=== PATIENT | female | born 1935 | race Caucasian/White ===

== ENCOUNTER 2016-06-20 15:44 | Observation (INO) | payer OTHER ==
[~2016-06-20] VITALS: Ht 172.7 cm; Wt 82.7 kg
[~2016-06-20 15:44] MED LIST: AMIODARONE HCL200 M1 PO; AMIODARONE HCL400 M1 PO; AMLODIPINE BESY10 M1 PO; AMOX-CLAV 875-1 EACH PO; ASPIRIN EC81 M1 PO; ASPIRIN81 M4 PO; CARDIZEM CD240 M1 PO; CARDIZEM CD300 M1 PO; CORDARONE200 MG PO; COZAAR25 M1 PO; DIOVAN160 MG PO; ELIQUIS5 M1 PO; FLOVENT HFA12 G1 INH; FUROSEMIDE20 M1 PO; GLIPIZIDE ER2.5 M1 PO; GLIPIZIDE XL5 M1 PO; HYDRALAZINE HCL25 M1 PO; HYDRALAZINE HCL50 M1 PO; JANUVIA100 M1 PO; LASIX20 M1 PO; LASIX40 M1 PO; LEVEMIR100 UNIT/1 SC; LISINOPRIL40 M1 PO; LOSARTAN POTASS25 M1 PO; MAGNESIUM OXID400 M1 PO; METFORMIN HCL500 M3 PO; METFORMIN HCL850 M1 PO; METOPROLOL SUCC50 M2 PO; NOVOLOG100 UNIT/2 SC; OMEPRAZOLE20 M2 PO; PAROXETINE HCL20 M1 PO; SIMVASTATIN80 M1 PO; SPIRIVA18 MCG INH; TOPROL XL50 M1 PO; TYLENOL325 M1 PO
--- NOTE | 2016-06-20 15:55 | NUR ---
TRIAGE: PT TO ER WITH DAUGHTER, SENT FROM [facility]F CLINIC FOR DIURESING R/T WEIGHT INCREASE OF 15 LBS FROM BASELINE. DENIES ANY PAIN OR DIFFICULTY BREATHING. USES O2 3L VIA NASAL CANULA AT BASELINE WITH SATS 91%, PT STATES "DR HERNANDEZ IS HAPPY IF I'M 88-92%".
--- NOTE | 2016-06-20 15:55 | NUR ---
Informed waiting has been performed.
--- NOTE | 2016-06-20 16:43 | ED GENERAL ADULT ---
History of Present Illness General Chief Complaint: General Adult Stated Complaint: +20LBS IN 2WEEKS, ON 80MG LASIX Source: patient, old records Exam Limitations: no limitations Allergies Coded Allergies: meperidine (From DEMEROL) (GI UPSET 06/20/16) oxycodone (From PERCOCET) (GI UPSET 06/20/16) Reconcile Medications Amiodarone HCl 200 MG TABLET 1 TAB PO DAILY AFIB Apixaban (Eliquis) 5 MG TABLET 1 TAB PO BID BLOOD THINNER (Reported) Aspirin (Ecotrin*) 81 MG TABLET.DR 1 TAB PO DAILY HEART HEALTH (Reported) Diltiazem HCl (Cardizem Cd) 300 MG CAP.ER.24H 1 TAB PO DAILY ATRIAL FIBRILLATION Fluticasone Propionate (Flovent Hfa) 12 GM AER.W.ADAP 2 PUF INH BID SHORTNESS OF BREATH Furosemide (Lasix) 40 MG TABLET 1 TAB PO BID CHF Hydralazine HCl 25 MG TABLET 1 MG PO TID BLOOD PRESSURE Insulin Detemir (Levemir) 100 UNIT/ML VIAL 9 UNITS SC BID diabetes . Losartan Potassium (Cozaar) 25 MG TABLET 1 TAB PO DAILY bp Magnesium Oxide 400 MG TABLET 400 MG PO TID HYPOMAGNESEMIA Metformin HCl 850 MG TABLET 1 TAB PO BID DM (Reported) Metoprolol Succinate 50 MG TAB.ER.24H 1 TAB PO BID HEART/BP (Reported) Paroxetine HCl 20 MG TABLET 1 TAB PO DAILY DEPRESSION (Reported) Simvastatin (Simvastatin*) 80 MG TABLET 0.5 TAB PO DAILY CHOLESTEROL ( Reported) Sitagliptin Phosphate (Januvia) 100 MG TABLET 1 TAB PO DAILY DIABETES ( Reported) Tiotropium Junior (Spiriva) 18 MCG CAP.W.DEV 1 PUF INH DAILY SHORTNESS OF BREATH Trazodone HCl (Unknown Strength) TABLET (Unknown Dose) UNKNOWN (Reported) Triage Note: TRIAGE: PT TO ER WITH DAUGHTER, SENT FROM [facility]F CLINIC FOR DIURESING R/T WEIGHT INCREASE OF 15 LBS FROM BASELINE. DENIES ANY PAIN OR DIFFICULTY BREATHING. USES O2 3L VIA NASAL CANULA AT BASELINE WITH SATS 91%, PT STATES "DR HERNANDEZ IS HAPPY IF I'M 88-92%". Triage Nurses Notes Reviewed? yes HPI: Patient presents for evaluation of a 15-20 pound weight gain over the past 2 weeks despite increased doses of Lasix. Patient denies any associated shortness of breath or chest pain. She is beginning to have difficulty ambulating due to the increasing weight and peripheral edema. Patient is becoming increasingly concerned that she will start building of fluid in her lungs. Weight gain has been constant and described as severe and unresponsive to her Lasix. Nothing seems to make the swelling improve. (JUDY CRUZ,EDIS Peck) Vital Signs & Intake/Output Vital Signs & Intake/Output Vital Signs Date Time Temp Pulse Resp B/P Pulse O2 O2 Flow FiO2 Ox Delivery Rate 06/21 1123 97.2 63 18 154/71 93 Nasal 3.0L Cannula 06/21 0809 97.0 60 20 176/77 94 Nasal 3.0L Cannula 06/21 0342 96.9 58 16 159/68 93 Nasal 3.0L Cannula 06/21 0106 97.0 62 18 165/74 94 Nasal 3.0L Cannula 06/20 2059 96.8 58 18 188/80 93 Nasal 3.0L Cannula 06/20 1857 98.1 50 18 167/71 95 Nasal 3.0L Cannula 06/20 1708 99 Room Air 06/20 1551 97.4 50 22 131/61 91 Nasal 3.0L Cannula ED Intake and Output 06/21 0000 06/20 1200 Intake Total 0 Output Total 400 Balance -400 Intake, Oral 0 Output, Urine 400 Patient 190 lb Weight Onset: Gradual Duration: week(s): Timing: recent history Injury Environment: home Associated Symptoms: increasingly swollen legs. (SHELBIE CRUZ,ARETHA Fuentes) Past History Travel History Traveled to [place] past 21 day No Medical History Any Pertinent Medical History? 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 Yes (SHELBIE CRUZ,ARETHA Fuentes) Review of Systems Review of Systems Constitutional: Reports: no symptoms. EENTM: Reports: no symptoms. Respiratory: Reports: no symptoms. Cardiovascular: Reports: no symptoms. GI: Reports: no symptoms. Genitourinary: Reports: no symptoms. Musculoskeletal: Reports: no symptoms. Skin: Reports: see HPI. Neurological/Psychological: Reports: no symptoms. Hematologic/Endocrine: Reports: no symptoms. Immunologic/Allergic: Reports: no symptoms. All Other Systems: Reviewed and Negative (JUDY CRUZ,EDIS Peck) Physical Exam Physical Exam General Appearance: SEE BELOW Comments: Gen.: Well-nourished, well-developed, no acute respiratory distress (nasal cannula in place). Head: Normocephalic, atraumatic. Eyes: Normal inspection bilaterally Ears: Normal inspection bilaterally Nose: Normal inspection Throat/mouth : Moist mucosa Neck: Supple, full range of motion, no goiter Heart: Regular rate and rhythm, no murmurs rubs or gallops Lungs: Clear to auscultation bilaterally with normal air entry Chest: Nontender Back: Normal range of motion Abdomen: Soft, nontender, nondistended, normal bowel sounds Extremities: Normal range of motion grossly, equal radial pulses, no cyanosis, 2 + bilateral lower extremity pitting edema without signs of cellulitis or significant chronic skin changes. Neurologic: Cranial nerves grossly intact, speech is clear Skin: warm and dry Psychiatric: Calm, cooperative, no apparent delusions or hallucinations (JUDY CRUZ,EDIS Peck) Physical Exam Head: atraumatic, normal appearance Eyes: Bilateral: normal appearance. Ears, Nose, Throat: normal pharynx, normal ENT inspection Neck: normal inspection, supple, full range of motion Respiratory: normal breath sounds, chest non-tender, no respiratory distress, quiet respiration, lungs clear Cardiovascular: regular rate/rhythm Gastrointestinal: normal bowel sounds, soft, non-tender Back: normal inspection, normal range of motion, vertebral tenderness Extremities: normal inspection, normal capillary refill, normal range of motion, no edema Reflexes: 1+: bicep (R), bicep (L). Skin: intact, normal color, warm/dry Core Measures ACS in differential dx? No CVA/TIA Diagnosis: No Severe Sepsis Present: No Septic Shock Present: No (SHELBIE CRUZ,ARETHA Fuentes) Progress Differential Diagnoses I considered the following diagnoses in my evaluation of the patient: CHF, peripheral edema, anasarca renal failure Comments: 06/20/2016 8:07:26 PM patient will be observed in the emergency department overnight and provided IV diuretics. Patient will be reevaluated in the morning for final disposition. Patient signed out to Dr. Macias. 06/21/2016 12:55:19 PM patient signed out to me by Dr. 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 The patient has had a reasonable diuresis overnight and has lost about 4 pounds of weight. (JUDY CRUZ,EDIS Peck) Differential Diagnoses I considered the following diagnoses in my evaluation of the patient: pt with volume overload, differential dx as above. Plan of Care: Orders Procedure Date/time Status Heart Healthy Diet 06/[address] in observation 06/21 1300 Active PT Evaluate & Treat 06/21 1126 Active Weight 06/21 1107 Active CASE MANAGEMENT CONSULT 06/21 0804 Active BASIC METABOLIC PANEL 06/21 0700 Complete EKG 06/[address] in observation 06/20 2019 Active Patient Data 06/[address] in observation 06/20 2005 Active Patient Data 06/20 2005 Active Intake & Output 06/20 1706 Active Saline Lock 06/20 1642 Active CBC WITHOUT DIFFERENTIAL 06/20 1642 Complete B-TYPE NATRIURETIC PEP (BNP) 06/20 1642 Complete BASIC METABOLIC PANEL 06/20 1642 Complete Laboratory Tests 06/21/16 0643: Anion Gap 13, Estimated GFR 48 L, BUN/Creatinine Ratio 38.2 H, Glucose 270 H, Calcium 8.4 06/20/16 1730: Anion Gap 17 H, Estimated GFR 40 L, BUN/Creatinine Ratio 36.2 H, Glucose 242 H, Calcium 8.7, Ozd-Z-Jkudocuvtes Pept 9740 H, CBC w Diff NO MAN DIFF REQ, RBC 4.24, MCV 73.0 L, MCH 22.3 L, RDW 18.8 H, MPV 8.6, Gran % 78.7 H, Lymphocytes % 11.3 L, Monocytes % 7.3, Eosinophils % 2.4, Basophils % 0.3, Absolute Granulocytes 3.4, Absolute Lymphocytes 0.5 L, Absolute Monocytes 0.3, Absolute Eosinophils 0.1, Absolute Basophils 0, PUBS MCHC 30.6 L Diagnostic Imaging: Viewed by Me: Radiology Read. Discussed w/RAD: Radiology Read. CXR Impression: no acute abnormality, no infiltrates, normal size heart, normal mediastinum Initial ED EKG: normal axis, normal intervals, normal p-waves, normal QRS complex, normal sinus rhythm, no acute changes Hand-Off Endorsed To: EDIS KIM MD Endorsed Time: 0700 Pending: consult (follow up case management), Xray (ARETHA MACIAS MD) Departure Departure Condition: Stable Referrals: PANCHITO JUDD MD (PCP/Family) Departure Forms: Customer Survey General Discharge Information Observation Note Spoke With: YUMIKO CRUZ,IRVIN Physician Advisor Notified: TARAN CRUZ,IKE Gomez Place Patient In: Non-ED OBS Care Area Rationale for Observation: My rational for observation is as follows patient is suffering volume overload secondary to congestive heart failure. At this point the patient's volume overload has manifested itself with peripheral edema that has worsened over the past few days along with a sizable weight gain. Patient is at risk of congestive heart failure, dyspnea and ultimately respiratory failure if her volume status is not managed properly. She has failed outpatient management with P0 Lasix and intermittent IV Lasix. She continues to gain weight. I feel she now requires a more aggressive management with repeated doses of IV furosemide and close monitoring of the patient's intake and output to sure negative fluid balance along with monitoring the patient's renal functions and potassium levels. (EDIS KIM MD) Departure Disposition: STILL A PATIENT Clinical Impression Primary Impression: Volume overload (ARETHA MACIAS MD) Critical Care Note Critical Care Note Critical Care Time: non-applicable (ARETHA MACIAS MD) ED Attending Observation Initial Observation Note: Patient's disposition (admission or discharge) is uncertain at this time, she needs a period of observation for the following reason(s): Patient is exhibiting clinical volume overload that has not responded to outpatient management with oral Lasix. She now requires IV Lasix and monitoring of intake and output and weight. Renal functions and potassium levels will also need to be monitored. If the patient improves clinically she can be considered for discharge. The ED Nurse caring for this patient has been personally informed as to what the patient is being observed for. (EDIS KIM MD) Initial Observation Note: I have seen and personally examined EDDY ALMAZAN on 06/20/16 at 2301. I agree with the current emergency department documentation. The disposition (admission or discharge) is uncertain at this time, she needs a period of observation for the following reason(s): The ED Nurse caring for this patient has been personally informed as to what the patient is being observed for. Observation Re-Evaluation: I have reevaluated EDDY ALMAZAN on 06/20/16 at 2302. The physical findings that support the continued need to observe this patient include pt receiving iv lasix... to be placed in AM. (SHELBIE CRUZ,ARETHA Fuentes)
--- NOTE | 2016-06-20 17:00 | NUR ---
IV ESTABLISHED, PT RESTING COMFORTABLY, 4+ PITTING EDEMA NOTED TO BILATERAL LOWER EXTREMITIES NOTED, PT REPORTING ABD EDEMA WELL, NO ABD PAIN ON PALPATION. PT REPORTING HOME 02 AT BASELINE, DENIES ANY INCREASED NEEDS OF 02 RECENTLY, STATES SHE ROUTINELY SLEEPS SITTING UP ON THE COUCH. CAME TO ED TODAY FOR A 15 LB WEIGHT GAIN OVER THE PAST TWO WEEKS DESPITE 80 MG OF LASIX DAILY
--- NOTE | 2016-06-20 17:33 | NUR ---
BLOOD DRAWN AND SENT TO [facility]
--- NOTE | 2016-06-20 17:38 | NUR ---
ORDER FOOD TRAY PT REQUESTED TUNA SANDWICH AND GINGERAL PER DR JUDY NELSON TO EAT
[2016-06-20 17:47] LABS: ABSOLUTE BASOPHIL COUNT 0 /CUMM (0.0-0.2); ABSOLUTE EOSINOPHIL COUNT 0.1 /CUMM (0.0-0.7); ABSOLUTE GRANULOCYTE CT 3.4 /CUMM (1.4-6.5); ABSOLUTE LYMPH COUNT 0.5 /CUMM (1.2-3.4); ABSOLUTE MONOCYTE COUNT 0.3 /CUMM (0.10-0.60); BASOPHIL % 0.3 % (0.0-2.0); EOSINOPHIL % 2.4 % (0-5); GRANULOCYTE % 78.7 % (42.2-75.2); HEMATOCRIT 30.9 % (37-47); MEAN CORPUSCULAR HGB 22.3 PG (27.0-31.0); MEAN CORPUSCULAR HGB CONC 30.6 G/DL (33.0-37.0); MEAN PLATELET VOLUME 8.6 FL (7.4-10.4); PLATELET COUNT 229 /CUMM (130-400); RBC DISTRIBUTION WIDTH 18.8 % (11.5-14.5); RED BLOOD CELL CT 4.24 /CUMM (4.20-5.40); WHITE BLOOD CELL COUNT 4.3 /CUMM (4.8-10.8)
--- NOTE | 2016-06-20 18:30 | NUR ---
PT RECIEVED FOOD TRAY
--- NOTE | 2016-06-20 18:56 | NUR ---
PT RESTING QUIETLY, VSS, NAD, INFORMED OF POC, DENIES ANY ADDTL NEEDS AT THIS TIME. DENIES ANY SOB, MORALES, CP.
--- NOTE | 2016-06-20 19:08 | NUR ---
IN TO [facility] PT
--- NOTE | 2016-06-20 20:27 | NUR ---
PT MEDICATED WITH 80MG LASIX PER ORDER (SEE MAR). COMMODE AT BEDSIDE. WILL CTM OUTPUT AND EFFECT.
--- NOTE | 2016-06-20 20:28 | NUR ---
PT FAMILY AT BEDSIDE REQUESTING TO SPEAK WITH CASE MANAGEMENT. CASE MANAGEMENT AT BEDSIDE NOW TO TALK TO FAMILY.
[2016-06-20] MEDS ORDERED: METFORMIN HCL850 M1 PO (20:45)
[2016-06-20] MEDS ORDERED: METOPROLOL SUCC50 M2 PO (20:46)
--- NOTE | 2016-06-20 20:46 | NUR ---
Case Mgmnt TSF: I went in and introduced myself to patient's daughter ( I had already introduced myself to patient earlier). I gave them our brochure and card. Patient's daughter stated they had gotten a bill earlier in a particular status and were worried about that. I told them to contact us if that happened again. I gave them a list of facilities for possible STR if patient was medically cleared and we were able to receive prior auth. I answered all of their questions at this time and they are happy with the poc at present. I let the patient know I would speak with her in the morning when I came in and we would further clarify the plan at that time. Patient and daughter are in agreement at present. CM continuing to follow.
[2016-06-20] MEDS ORDERED: TRAZODONE HCL50 M1 (20:47)
--- NOTE | 2016-06-20 20:57 | NUR ---
PT MOVED FROM ER STRETCHER TO HOSPITAL BED FOR COMFORT, 250 CC CLEAR YELLOW URINE OUTPUT. PT DENIES ANY ADDTL NEEDS OR CONCERNS.
--- NOTE | 2016-06-20 21:46 | NUR ---
150 CCS CLEAR YELLOW URINE OUTPUT. PT DENIES ANY OTHER REQUESTS. PT PROVIDED THIS RN WITH LIVING WILL. COPY MADE. ORIGINAL RETURNED TO PT AND COPY PLACED IN PT CHART.
--- NOTE | 2016-06-20 22:54 | NUR ---
PT URINATED 250 CCS CLEAR YELLOW URINE. DENIES ANY SOB. NSR ON MONITOR. 93% ON BASELINE 3L. DENIES ANY OTHER REQUESTS. WILL CTM.
--- NOTE | 2016-06-21 01:05 | NUR ---
PT VOIDED 200CCS CLEAR YELLOW URINE. DENIES ANY COMPLAINTS. NSR ON MONITOR. NAD NOTED. WILL CTM.
--- NOTE | 2016-06-21 03:41 | NUR ---
PT MEDICATED WITH SECOND ROUND IV LASIX 80MG PER ORDER (SEE MAR). WILL CONTINUE TO MONITOR OUTPUT. IMPROVEMENT IN LEG EDEMA NOTED 2+. NSR ON MONITOR. DENIES ANY PAIN OR SOB. NAD NOTED.
--- NOTE | 2016-06-21 05:59 | NUR ---
PT PROVIDED WITH DECAF COFFEE PER REQUEST AND MD APPROVAL.
--- NOTE | 2016-06-21 07:45 | RADIOLOGY REPORT ---
EXAMINATION: XR PORTABLE CHEST CLINICAL INFORMATION: Volume overload. CHF COMPARISON: June 17, 2016 and May 23, 2016 TECHNIQUE: Portable view of the chest was obtained. FINDINGS: There are again noted to be bibasilar regions of density consistent with atelectasis and pleural effusions similar to prior study. There is some central peribronchial cuffing present which may be on basis of early interstitial edema. No airspace edema is identified. The heart is upper limits of normal in size. No pneumothorax. IMPRESSION: Bibasilar density similar to prior examination most likely related to atelectasis and pleural fluid. Findings of mild interstitial edema.
--- NOTE | 2016-06-21 08:00 | NUR ---
ASSUMED CARE OF THIS PATIENT, REPORT RECEIVED FROM RN KIT IBARRA. PER DR KIM PATIENT IS TO REMAIN IN ER CASE MANAGEMENT HOLD FOR POSSIBLE PLACEMENT IN REHAB FACILITY. PT ASSISTED TO BSC FOR VOIDING. REQUESTED BREAKFAST TRAY, HEART HEALTHY TRAY ORDERED.
--- NOTE | 2016-06-21 08:47 | NUR ---
HEART HEALTHY BREAKFAST TRAY DELIVERED TO PATIENT AT THIS TIME
--- NOTE | 2016-06-21 10:32 | NUR ---
PT OOB TO BSC DAUGHTER AT BEDSIDE
--- NOTE | 2016-06-21 11:08 | NUR ---
PT WEIGHED, 185.5 LBS PT AMBULATED FROM RM 12 TO POD 1 DOC BOX AND BACK WITHOUT DIFFICULTY. DR KIM AT BEDSIDE DISCUSSING POC WITH FAMILY.
--- NOTE | 2016-06-21 11:15 | NUR ---
REPORT TO JUN SPENCE
--- NOTE | 2016-06-21 11:24 | NUR ---
RECIEVED REPORT/ASSUMED CARE OF PT. AWAITING DISPO FROM MD AND CASE MGMT. PT ALERT WITH NO COMPLAINTS, LUNCH TRAY PROVIDED.
--- NOTE | 2016-06-21 11:40 | NUR ---
Case Mgmnt TSF: I met with patient and family. Son was in room but daughter had to leave for a while. Patient did ambulate with nursing. She told me she felt winded afterwards. Patient has 3 steps into her house but the rest of the area is flat. Daughter has concerns about mother going home. PT has been paged to see how patient tolerates stairs. We will continue to work towards plan of care for patient. CM continuing to follow.
--- NOTE | 2016-06-21 11:48 | NUR ---
SEEN BY CASE MGMT. PENDING PT EVAL TO SEE IF PT CAN MANAGE THE 3 STAIRS IN/OUT OF HER HOME.
--- NOTE | 2016-06-21 12:52 | NUR ---
PT COMFORTABLE, GETTING UP TO COMMODE AND BACK INDEPENDENTLY. CASE MANAGEMENT AT BEDSIDE TO DISCUSS DISPO.
--- NOTE | 2016-06-21 13:31 | NUR ---
PT TO BE ADMITTED INPT OBS, AWAITING BED ASSIGNMENT, PLAN EXPLAINED TO PT BY CASE MGMT.
--- NOTE | 2016-06-21 14:01 | History & Physical ---
MARGUERITE SANTILLAN 06/21/16 1401: General Information and HPI MD Statement: I have seen and personally examined EDDY ALMAZAN and documented this H&P. The patient is a 80 year old F who presented with a patient stated chief complaint of []. Source of Information: patient Exam Limitations: no limitations History of Present Illness: This is a 80-year-old lady with past medical history significant for for HFpEF, Afib on Eliquis, CAD s/p stent placement, hypertension, hyperlipidemia, COPD on 2 L home oxygen, depression, multiple recent admissions for CHF exacerbation, presents to the hospital for worsening of lower extremity edema 2 weeks. The patient had approximately 15-20 pound weight gain over the past 2 weeks which was not responsive to increased dose of Lasix. She also experienced difficulty ambulating because of her increased weight and peripheral edema. She received 2 doses of IV Lasix while in the ED(06/20/2016, 06/21/2016). The patient reports dyspnea and orthopnea. She denies headache, nausea, vomiting , chest pain, palpitation, abdominal pain, urinary symptoms. She follows with Dr. Longoria (ship rigger) Dr. Jo (PCP). Allergies/Medications Allergies: Coded Allergies: meperidine (From DEMEROL) (GI UPSET 06/20/16) oxycodone (From PERCOCET) (GI UPSET 06/20/16) Home Med list Amiodarone HCl 200 MG TABLET 1 TAB PO DAILY AFIB Apixaban (Eliquis) 5 MG TABLET 1 TAB PO BID BLOOD THINNER (Reported) Aspirin (Ecotrin*) 81 MG TABLET.DR 1 TAB PO DAILY HEART HEALTH (Reported) Diltiazem HCl (Cardizem Cd) 300 MG CAP.ER.24H 1 TAB PO DAILY ATRIAL FIBRILLATION Fluticasone Propionate (Flovent Hfa) 12 GM AER.W.ADAP 2 PUF INH BID SHORTNESS OF BREATH Furosemide (Lasix) 40 MG TABLET 1 TAB PO BID CHF Hydralazine HCl 25 MG TABLET 1 MG PO TID BLOOD PRESSURE Insulin Detemir (Levemir) 100 UNIT/ML VIAL 9 UNITS SC BID diabetes . Losartan Potassium (Cozaar) 25 MG TABLET 1 TAB PO DAILY bp Magnesium Oxide 400 MG TABLET 400 MG PO TID HYPOMAGNESEMIA Metformin HCl 850 MG TABLET 1 TAB PO BID DM (Reported) Metoprolol Succinate 50 MG TAB.ER.24H 1 TAB PO BID HEART/BP (Reported) Paroxetine HCl 20 MG TABLET 1 TAB PO DAILY DEPRESSION (Reported) Simvastatin (Simvastatin*) 80 MG TABLET 0.5 TAB PO DAILY CHOLESTEROL ( Reported) Sitagliptin Phosphate (Januvia) 100 MG TABLET 1 TAB PO DAILY DIABETES ( Reported) Tiotropium [place] (Spiriva) 18 MCG CAP.W.DEV 1 PUF INH DAILY SHORTNESS OF BREATH Compliance With Home Meds: GOOD Past History Travel History Traveled to [place] past 21 day No Medical History Blood Transfusion Hx: No Neurological: NONE EENT: NONE Cardiovascular: AFIB, CHF, hypertension, hyperlipidemia, STENTS (1) Respiratory: COPD, pneumonia Gastrointestinal: NONE Hepatic: NONE Renal: NONE Musculoskeletal: NONE Psychiatric: anxiety, depression Endocrine: diabetes Blood Disorders: LOW MAGNESIUM Cancer(s): NONE 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 self Services at Home: Oxygen Smoking Status: Never Smoked ETOH Use: occasional use Illicit Drug Use: denies illicit drug use Living Will? yes Functional Ability ADLs Independent: dressing, eating, toileting, bathing. Ambulation: independent IADLs Independent: shopping, housework, finances, food prep, telephone, transportation , medication admin. Review of Systems Review of Systems Constitutional: Denies: chills, diaphoresis, fever, malaise, weakness, unexplained weight loss. EENTM: Reports: no symptoms. Cardiovascular: Reports: peripheral edema. Denies: chest pain, orthopena, palpitations, syncope. Respiratory: Reports: no symptoms. GI: Reports: no symptoms. Genitourinary: Reports: no symptoms. Musculoskeletal: Reports: no symptoms. Skin: Reports: no symptoms. Neurological/Psychological: Reports: no symptoms. Hematologic/Endocrine: Reports: no symptoms. Immunologic/Allergic: Reports: no symptoms. All Other Systems: Reviewed and Negative Exam & Diagnostic Data Last 24 Hrs of Vital Signs/I&O Vital Signs Date Time Temp Pulse Resp B/P Pulse O2 O2 Flow FiO2 Ox Delivery Rate 06/21 1627 70 172/74 01/14 1626 70 172/74 06/21 1553 90 Nasal 3.0L Cannula 06/21 1447 97.2 70 18 172/74 92 Nasal 3.0L Cannula 06/21 1438 Nasal 3.0L Cannula 06/21 1123 97.2 63 18 154/71 93 Nasal 3.0L Cannula 06/21 0809 97.0 60 20 176/77 94 Nasal 3.0L Cannula 06/21 0342 96.9 58 16 159/68 93 Nasal 3.0L Cannula 06/21 0106 97.0 62 18 165/74 94 Nasal 3.0L Cannula 06/20 2059 96.8 58 18 188/80 93 Nasal 3.0L Cannula 06/20 1857 98.1 50 18 167/71 95 Nasal 3.0L Cannula 06/20 1708 99 Room Air Intake & Output 06/21 1600 06/21 0800 06/21 0000 Intake Total 920 0 Output Total 1175 1050 400 Balance -255 -1050 -400 Intake, Oral 920 0 Output, Urine 1175 1050 400 Patient 185 lb 190 lb Weight Physical Exam General Appearance Alert, Oriented X3, Cooperative, No Acute Distress Skin No Rashes, No Breakdown, No Significant Lesion HEENT Atraumatic, PERRLA, EOMI, Mucous Membr. moist/pink Neck Supple, No JVD, No thryomegaly, +2 Carotid Pulse wo Bruit, No LAD Lymphatic Axillary nl, Cervical nl Cardiovascular Regular Rate, Normal S1, Normal S2, Systolic murmur Lungs Clear to Auscultation, Normal Air Movement Abdomen Normal Bowel Sounds, Soft, No Tenderness, No Hepatospenomegaly, No Masses Neurological Normal Speech, Strength at 5/5 X4 Ext, Normal Tone, Sensation Intact, Cranial Nerves 3-12 NL, Reflexes 2+ Extremities No Clubbing, No Cyanosis, BL LE edema Vascular Normal Pulses, Pulses Symmetrical Diagnostic Data EKG Results Sinus rhythm, rate 56, QTC 452, no significant ST-T wave abnormalities. CXR Results Bibasilar density similar to prior examination most likely related to atelectasis and pleural fluid. Findings of mild interstitial edema. Assessment/Plan Assessment: 80-year-old lady with history of HFpEF which recent multiple admissions for CHF exacerbation presents with worsening of lower extremity edema 2 weeks along with orthopnea and dyspnea. Labs and imaging data reviewed. Problem list #1 HFpEF/peripheral edema #2 A. fib on Eliquis #3 2 COPD 3 L oxygen #4 diabetes #5 hypertension Plan * ekg monitor * Vital signs per protocol * Oxygen supplementation as needed * I's and O's, daily weights * Accu-Cheks * Rule out ACS * Will start the patient on IV furosemide 80 mg daily (received 1 dose in the ED ) * Cardiology consult * Patient reports that she has recently done echocardiogram at Dr. pham's office, please obtain records * Will continue home medications of amiodarone, aspirin, Eliquis, statin, diltiazem, hydralazine, metoprolol, paroxetine * Will hold home medications of metformin and Januvia, will maintain the patient on Levemir 10 units SC twice a day and insulin sliding scale with close monitoring of glucose levels. * Cardiac/diabetic diet * Confirm CMR * DVT prophylaxis: patient is on Eliquis * DNI/DNR As Ranked By This Provider Problem List: 1. CHF (congestive heart failure) 2. Hypertension 3. Hyperlipidemia 4. Diabetes 5. COPD (chronic obstructive pulmonary disease) Core Measures/Miscellaneous Acute Coronary Syndrome ACS Diagnosis: No Cerebrovascular Accident CVA/TIA Diagnosis: No Congestive Heart Failure CHF Diagnosis: No Venous Thromboembolism VTE Risk Factors: Age > 40 VTE Prophylaxis Ordered Inpt: Pharm- Eliquis No [facility] VTE prophylaxis d/t: No contraindications No VTE Pharm Prophylaxis d/t: No contraindications VTE Diagnosis: No VTE Type: NONE VTE Confirmed by (Test): NONE Severe Sepsis Severe Sepsis Present: No Septic Shock Septic Shock Present: No Miscellaneous Documentation Attending Case Discussed With: IRVIN CALDERON MD Primary Care Physician: BINTA CRUZ,[facility] Patient sees these Specialists Cardiology, Dr. Longoria Level of Patient Care: Telemetry IRVIN CALDERON MD 06/22/16 1222: Attending Review Statement Attending Statement Attending Statement: examined this patient, discuss w/resident/PA/DRESS OPERATOR, agreed w/resident/PA/DRESS OPERATOR, reviewed EMR data (avail), discussed with nursing, reviewed images, amended to note Attending Assessment/Plan: Also see my addendum separately.
--- NOTE | 2016-06-21 14:03 | NUR ---
HOUSE STAFF IN TO EVAL.
--- NOTE | 2016-06-21 14:04 | NUR ---
BED ASSIGNMENT 179-01
--- NOTE | 2016-06-21 14:20 | NUR ---
Case Mgmnt TSF: I went in and met with patient and family. We discussed plan of care at this time. Answered all of family's questions. All parties are in agreement with plan currently. CM continuing to follow.
--- NOTE | 2016-06-21 14:50 | NUR ---
REPORT CALLED TO HUGO ON .
--- NOTE | 2016-06-21 15:46 | NUR ---
1528 PT ARRIVED TO FLOOR VIA STRETCHER WITH NURSE ARIAS FROM THE ER. PT A&O X3. VSS. TELE MONITOR ATTACHED AND PT IN SR IN THE 70'S. PT ORIENTED TO ROOM AND REMOTE CONTROLS.
[2016-06-21 16:00] VITALS: BP 170/64
--- NOTE | 2016-06-21 16:34 | Admission Certification ---
Admission Certification Certification Statement - As attending physician, I certify that at the time of - admission, based on clinical presentation, severity of - symptoms, need for further diagnostic testing and - therapeutic interventions, and risk of adverse outcomes - without in-hospital treatment, in my clinical assessment, - this patient requires an acute hospital stay for a minimum - of two nights or longer. I have also considered psychsocial - factors such as support system, advanced age, financial - issues, cognitive issues, and failed out-patient treatments, - past re-admission history, safety of patient, and lack of - compliance as applicable. Specific rationale supporting this admission is: Patient admitted with acute on chronic CHF exacerbation needs IV diuresis.
--- NOTE | 2016-06-21 16:39 | PN- Att Addend ---
See Addendum Attending Addendum Attending Brief Note 80-year-old lady with past medical history significant for for HFpEF, Afib on Eliquis, CAD s/p stent placement, hypertension, hyperlipidemia, COPD on 2 L home oxygen, depression, multiple recent admissions for CHF exacerbation who presented to the emergency room yesterday with increasing shortness of breath, weight gain and lower extremity swelling. Patient was sent from CHF clinic. Patient was observed in the emergency room overnight. She received 2 doses of IV Lasix. She still not feeling better and still having shortness of breath or dyspnea on exertion. Therefore at that point it was decided that she needs to be observed on the telemetry floor. She does have orthopnea. She denies any chest pain or any other pain. She did admit to eating a hamburger last week. Vital Signs Date Time Temp Pulse Resp B/P Pulse O2 O2 Flow FiO2 Ox Delivery Rate 06/21 1627 70 172/74 06/21 1626 70 172/74 06/21 1553 90 Nasal 3.0L Cannula 06/21 1447 97.2 70 18 172/74 92 Nasal 3.0L Cannula 06/21 1438 Nasal 3.0L Cannula 06/21 1123 97.2 63 18 154/71 93 Nasal 3.0L Cannula 06/21 0809 97.0 60 20 176/77 94 Nasal 3.0L Cannula 06/21 0342 96.9 58 16 159/68 93 Nasal 3.0L Cannula 06/21 0106 97.0 62 18 165/74 94 Nasal 3.0L Cannula 06/20 2059 96.8 58 18 188/80 93 Nasal 3.0L Cannula 06/20 1857 98.1 50 18 167/71 95 Nasal 3.0L Cannula 06/20 1708 99 Room Air on exam; aox3, nad cv; s1,s2, rrr, + systolic murmur. resp; decreased bs at bases. abd; soft, nt, bs+ ext; no edema Laboratory Tests 06/21 06/21 06/20 1453 0643 1730 Chemistry Sodium (137 - 145 mmol/L) 137 138 Potassium (3.5 - 5.1 mmol/L) 3.9 4.2 Chloride (98 - 107 mmol/L) 94 L 94 L Carbon Dioxide (22 - 30 mmol/L) 29 27 Anion Gap (5 - 16) 13 17 H BUN (7 - 17 mg/dL) 42 H 47 H Creatinine (0.5 - 1.0 mg/dL) 1.1 H 1.3 H Estimated GFR (>60 ml/min) 48 L 40 L BUN/Creatinine Ratio (7 - 25 %) 38.2 H 36.2 H Glucose (65 - 99 mg/dL) 270 H 242 H Calcium (8.4 - 10.2 mg/dL) 8.4 8.7 Magnesium (1.6 - 2.3 mg/dL) Pending Troponin I (< 0.11 ng/ml) < 0.01 [id number] Pept (<125 pg/mL) 9740 H Hematology CBC w Diff NO MAN DIFF REQ WBC (4.8 - 10.8 /CUMM) 4.3 L RBC (4.20 - 5.40 /CUMM) 4.24 Hgb (12.0 - 16.0 G/DL) 9.5 L Hct (37 - 47 %) 30.9 L MCV (81.0 - 99.0 FL) 73.0 L MCH (27.0 - 31.0 PG) 22.3 L RDW (11.5 - 14.5 %) 18.8 H Plt Count (130 - 400 /CUMM) 229 MPV (7.4 - 10.4 FL) 8.6 Gran % (42.2 - 75.2 %) 78.7 H Lymphocytes % (20.5 - 51.1 %) 11.3 L Monocytes % (1.7 - 9.3 %) 7.3 Eosinophils % (0 - 5 %) 2.4 Basophils % (0.0 - 2.0 %) 0.3 Absolute Granulocytes (1.4 - 6.5 /CUMM) 3.4 Absolute Lymphocytes (1.2 - 3.4 /CUMM) 0.5 L Absolute Monocytes (0.10 - 0.60 /CUMM) 0.3 Absolute Eosinophils (0.0 - 0.7 /CUMM) 0.1 Absolute Basophils (0.0 - 0.2 /CUMM) 0 PUBS MCHC (33.0 - 37.0 G/DL) 30.6 L CXR: IMPRESSION: Bibasilar density similar to prior examination most likely related to atelectasis and pleural fluid. Findings of mild interstitial edema. A/P; 80-year-old lady with past medical history significant for for HFpEF, Afib on Eliquis, CAD s/p stent placement, hypertension, hyperlipidemia, COPD on 2 L home oxygen, depression, multiple recent admissions for CHF exacerbation now getting admitted with acute CHF exacerbation. Patient is brought to telemetry floor for observation. She will be diuresed with IV Lasix. Please monitor strict intake and output as well as daily weights. Please consult cardiology. Please trend the troponins. Patient claims she had a recent echo done at her primary care doctor's office therefore please hold off on further aqua and get records from Dr. Jo's office. Please confirm and continue the rest of the home medications. She also told me that she is scheduled for right heart cath this coming Thursday. 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 DVT prophylaxis: Patient takes Eliquis. DNR/I.
--- NOTE | 2016-06-21 19:55 | Cons- Cardiology ---
General Information and HPI Consulting Request Date of Consult: 06/21/16 Requested By: IRVIN CALDERON MD Reason for Consult: Shortness of breath. Source of Information: patient, old records Exam Limitations: no limitations History of Present Illness: Mrs. Corinna Ybarra is a 80-year-old female with a history of anxiety disorder, obesity, former heavy tobacco use, COPD on 3 L home O2, moderate to severe pulmonary hypertension, hypertension, dyslipidemia, diabetes mellitus, previous atrial fibrillation, and coronary artery disease s/p PCI with stent deployment around 2005, repeat cardiac catheterization on 10/23/2015 that revealed patent stent, and recurrent heart failure with preserved systolic function, moderate mitral regurgitation who presented with complaints of increasing bilateral lower extremity edema, weight gain of 15-20 pounds over the past 2 weeks, chronic dyspnea on exertion, chronic orthopnea and CXR findings consistent with vascular congestion and bilateral atelectasis/pleural effusions. Allergies/Medications Allergies: Coded Allergies: meperidine (From DEMEROL) (GI UPSET 06/20/16) oxycodone (From PERCOCET) (GI UPSET 06/20/16) Home Med List: Amiodarone HCl 200 MG TABLET 1 TAB PO DAILY AFIB Apixaban (Eliquis) 5 MG TABLET 1 TAB PO BID BLOOD THINNER (Reported) Aspirin (Ecotrin*) 81 MG TABLET.DR 1 TAB PO DAILY HEART HEALTH (Reported) Diltiazem HCl (Cardizem Cd) 300 MG CAP.ER.24H 1 TAB PO DAILY ATRIAL FIBRILLATION Fluticasone Propionate (Flovent Hfa) 12 GM AER.W.ADAP 2 PUF INH BID SHORTNESS OF BREATH Furosemide (Lasix) 40 MG TABLET 1 TAB PO BID CHF Hydralazine HCl 25 MG TABLET 1 MG PO TID BLOOD PRESSURE Insulin Detemir (Levemir) 100 UNIT/ML VIAL 9 UNITS SC BID diabetes . Losartan Potassium (Cozaar) 25 MG TABLET 1 TAB PO DAILY bp Magnesium Oxide 400 MG TABLET 400 MG PO TID HYPOMAGNESEMIA Metformin HCl 850 MG TABLET 1 TAB PO BID DM (Reported) Metoprolol Succinate 50 MG TAB.ER.24H 1 TAB PO BID HEART/BP (Reported) Paroxetine HCl 20 MG TABLET 1 TAB PO DAILY DEPRESSION (Reported) Simvastatin (Simvastatin*) 80 MG TABLET 0.5 TAB PO DAILY CHOLESTEROL ( Reported) Sitagliptin Phosphate (Januvia) 100 MG TABLET 1 TAB PO DAILY DIABETES ( Reported) Tiotropium [place] (Spiriva) 18 MCG CAP.W.DEV 1 PUF INH DAILY SHORTNESS OF BREATH Review of Systems Review of Systems: A 14 point system review was obtained and was noncontributory, other than as above. 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 self Services at Home: Oxygen Smoking Status: Former Smoker ETOH Use: occasional use Illicit Drug Use: denies illicit drug use Living Will? yes Functional Ability ADLs Independent: dressing, eating, toileting, bathing. Ambulation: independent IADLs Independent: shopping, housework, finances, food prep, telephone, transportation , medication admin. Exam & Diagnostic Data Vital Signs and I&O Vital Signs Date Time Temp Pulse Resp B/P Pulse O2 O2 Flow FiO2 Ox Delivery Rate 06/21 1854 93 Nasal 3.0L Cannula 06/21 1849 Nasal 3.0L Cannula 06/21 1627 70 172/74 06/21 1626 70 172/74 06/21 1600 98.3 73 22 170/64 90 Nasal 2.0L Cannula 06/21 1553 90 Nasal 3.0L Cannula 06/21 1447 97.2 70 18 172/74 92 Nasal 3.0L Cannula 06/21 1438 Nasal 3.0L Cannula 06/21 1123 97.2 63 18 154/71 93 Nasal 3.0L Cannula 06/21 0809 97.0 60 20 176/77 94 Nasal 3.0L Cannula 06/21 0342 96.9 58 16 159/68 93 Nasal 3.0L Cannula 06/21 0106 97.0 62 18 165/74 94 Nasal 3.0L Cannula 06/20 2059 96.8 58 18 188/80 93 Nasal 3.0L Cannula Intake & Output 06/21 1600 06/21 0800 01/14 0000 06/20 1600 06/20 0800 06/20 0000 Intake Total 920 0 Output Total 1175 1050 400 Balance -255 -1050 -400 Intake, Oral 920 0 Output, Urine 1175 1050 400 Patient 185 lb 190 lb 190 lb Weight Physical Exam: Well-developed, morbidly obese elderly female in no acute distress with nasal oxygen in place. Vital signs: See above. HEENT: Normocephalic, atraumatic, EOMI, moist mucous membranes. Neck: No JVD, bilateral transmitted systolic murmur versus carotid bruits. Lungs: Decreased breath sounds bilaterally especially at the bases. Heart: S1, S2 with grade 2/6 systolic ejection type murmur best heard near the base and grade 2-3/6 holosystolic murmur best heard heard near the apex. No gallop or rub appreciated. PMI fifth ICS at MCL. Abdomen: Soft, nontender, positive bowel sounds. Extremities: Bilateral 2-3+ lower extremity edema. Labs/[place] Results: Laboratory Tests 06/21 06/21 06/20 1453 0643 1730 Chemistry Sodium (137 - 145 mmol/L) 137 138 Potassium (3.5 - 5.1 mmol/L) 3.9 4.2 Chloride (98 - 107 mmol/L) 94 L 94 L Carbon Dioxide (22 - 30 mmol/L) 29 27 Anion Gap (5 - 16) 13 17 H BUN (7 - 17 mg/dL) 42 H 47 H Creatinine (0.5 - 1.0 mg/dL) 1.1 H 1.3 H Estimated GFR (>60 ml/min) 48 L 40 L BUN/Creatinine Ratio (7 - 25 %) 38.2 H 36.2 H Glucose (65 - 99 mg/dL) 270 H 242 H Calcium (8.4 - 10.2 mg/dL) 8.4 8.7 Magnesium (1.6 - 2.3 mg/dL) 1.2 L Troponin I (< 0.11 ng/ml) < 0.01 Qso-A-Venjgckhqme Pept (<125 pg/mL) 9740 H Hematology CBC w Diff NO MAN DIFF REQ WBC (4.8 - 10.8 /CUMM) 4.3 L RBC (4.20 - 5.40 /CUMM) 4.24 Hgb (12.0 - 16.0 G/DL) 9.5 L Hct (37 - 47 %) 30.9 L MCV (81.0 - 99.0 FL) 73.0 L MCH (27.0 - 31.0 PG) 22.3 L RDW (11.5 - 14.5 %) 18.8 H Plt Count (130 - 400 /CUMM) 229 MPV (7.4 - 10.4 FL) 8.6 Gran % (42.2 - 75.2 %) 78.7 H Lymphocytes % (20.5 - 51.1 %) 11.3 L Monocytes % (1.7 - 9.3 %) 7.3 Eosinophils % (0 - 5 %) 2.4 Basophils % (0.0 - 2.0 %) 0.3 Absolute Granulocytes (1.4 - 6.5 /CUMM) 3.4 Absolute Lymphocytes (1.2 - 3.4 /CUMM) 0.5 L Absolute Monocytes (0.10 - 0.60 /CUMM) 0.3 Absolute Eosinophils (0.0 - 0.7 /CUMM) 0.1 Absolute Basophils (0.0 - 0.2 /CUMM) 0 PUBS MCHC (33.0 - 37.0 G/DL) 30.6 L Diagnostic Data Other Results Echocardiogram (11/24/2016) Normal size left ventricle, no obvious regional wall motion abnormalities, normal left ventricular ejection fraction estimated at 60-65%, mild right ventricular dilatation, mild right and moderate left atrial dilatation, age-related valvular changes, trileaflet aortic valve with diffuse thickening of the aortic valve cusps with reduced excursion, poorly visualized tricuspid valve and pulmonic valves, no pericardial effusion, left pleural effusion, and poorly visualized but grossly normal aortic root and ascending thoracic aorta. The Doppler portion of the study revealed evidence of moderate mitral regurgitation, mild aortic stenosis, mild to moderate tricuspid regurgitation, and moderate to severe pulmonary hypertension with an estimated RV peak systolic pressure of 62 mmHg. Great Vessels Aortic root and proximal ascending aorta not well visualized, grossly normal. Assessment/Plan Assessment/Plan Mrs. Ybarra is an elderly female with a known history of O2 dependent COPD, previous atrial fibrillation, coronary artery disease s/p PCI with risk equivalents/risk factors for the same and recurrent heart failure with mild concentric left ventricular hypertrophy, preserved left ventricular systolic function mild aortic stenosis, moderate mitral regurgitation, mild to moderate tricuspid regurgitation with moderate to severe pulmonary hypertension dilated right ventricle, etc. who presents with biventricular heart failure (right greater than left), despite an appropriate medical regimen including twice weekly IV diuretic therapy at the [facility]. Recommendations: * Telemetry admission, strict inputs/outputs, daily weights, follow-up troponins , follow-up electrocardiogram, etc. * Increase IV furosemide to 40 mg twice daily for the next 24 hours and reassess the need for further IV diuresis in the morning. * Repeat CXR in a.m. * Follow-up BUN/creatinine, potassium, magnesium closely and aim to maintain potassium between 4.0-4.5 mEq/L and magnesium at or above 2.0 mEq per liter. * Consider repeat echocardiogram if one not performed recently. * Follow-up thyroid and liver function with patient on amiodarone. * Check glycosylated hemoglobin A1c. * Consider discontinuing simvastatin and using a different statin given its potential interactions with both amiodarone and diltiazem. Amiodarone may decrease metabolism of HMG CoA reductase inhibitors leading to increase serum concentrations of these agents. Simvastatin may also increase the serum concentration of diltiazem and diltiazem may increase the serum concentration of simvastatin. Concurrent use of these agents is best avoided. * DVT prophylaxis being addressed with apixaban. Further recommendations will follow, Thank you. Consult Acknowledgment - Thank you for your consult request.
--- NOTE | 2016-06-21 20:22 | Patient Discharge Instructions ---
Discharge Instructions General Discharge Information You were seen/treated for: Acute on chronic diastolic congestive heart failure You had these procedures: None Watch for these problems: worsening shortness of breath Worsening lower extremity edema Weight gain Special Instructions: Follow-up with primary care doctor in 1 week Follow-up with your scallop cutter machine Bowen Longoria MD in one week Heart failure clinic visits increased to 3 times per week until stable. please follow up at the heart failur clinic Diet Recommended Diet: Heart Healthy Activity Full Activity/No Limits: Yes Acute Coronary Syndrome Inclusion Criteria At DC or during hospital stay patient has or had the following: ACS DIAGNOSIS No Discharge Core Measures Meds if any: Prescribed or Continued at Discharge Meds if any: NOT Prescribed or Continued at Discharge Congestive Heart Failure Inclusion Criteria At DC or during hospital stay patient has or had the following: CHF DIAGNOSIS Yes Discharge Core Measures Meds if any: Prescribed or Continued at Discharge Meds if any: NOT Prescribed or Continued at Discharge Cerebrovascular accident Inclusion Criteria At DC or during hospital stay patient has or had the following: CVA/TIA Diagnosis No Discharge Core Measures Meds if any: Prescribed or Continued at Discharge Meds if any: NOT Prescribed or Continued at Discharge Venous thromboembolism Inclusion Criteria VTE Diagnosis No VTE Type NONE VTE Confirmed by (Test) NONE Discharge Core Measures - Per Current guidelines, there needs to be overlap - treatment for the first 5 days of Warfarin therapy. - If discharged on Warfarin prior to 5 days of - overlap therapy, the patient will need to be - assessed for post discharge needs including - *Post discharge parental anticoagulation - *Warfarin and/or parental anticoagulation education - *Follow up date to check INR post discharge At least 5 days overlap therapy as Inpatient No Meds if any: Prescribed or Continued at Discharge Note: Overlap Therapy is Warfarin and Anticoagulant Meds if any: NOT Prescribed or Continued at Discharge
[2016-06-21 22:00] VITALS: BP 150/60
[2016-06-22 08:02] VITALS: BP 168/58
[2016-06-22 08:59] LABS: ABSOLUTE BASOPHIL COUNT 0 /CUMM (0.0-0.2); ABSOLUTE EOSINOPHIL COUNT 0.1 /CUMM (0.0-0.7); ABSOLUTE GRANULOCYTE CT 3.3 /CUMM (1.4-6.5); ABSOLUTE LYMPH COUNT 0.5 /CUMM (1.2-3.4); ABSOLUTE MONOCYTE COUNT 0.4 /CUMM (0.10-0.60); BASOPHIL % 0 % (0.0-2.0); EOSINOPHIL % 1.9 % (0-5); GRANULOCYTE % 77.5 % (42.2-75.2); HEMATOCRIT 28.6 % (37-47); MEAN CORPUSCULAR HGB 22.4 PG (27.0-31.0); MEAN CORPUSCULAR HGB CONC 31.5 G/DL (33.0-37.0); MEAN CORPUSCULAR VOLUME 71.3 FL (81.0-99.0); MEAN PLATELET VOLUME 8.2 FL (7.4-10.4); PLATELET COUNT 220 /CUMM (130-400); RBC DISTRIBUTION WIDTH 18.9 % (11.5-14.5); RED BLOOD CELL CT 4.01 /CUMM (4.20-5.40); WHITE BLOOD CELL COUNT 4.3 /CUMM (4.8-10.8)
--- NOTE | 2016-06-22 09:54 | RADIOLOGY REPORT ---
EXAMINATION: XR PORTABLE CHEST CLINICAL INFORMATION: Acute congestive heart failure. COMPARISON: 06/21/2016. TECHNIQUE: Portable AP upright view of the chest performed. FINDINGS: The cardiac silhouette is enlarged. Small to moderate bilateral pleural effusions are seen. There is vascular congestion and interstitial edema. The findings have demonstrated slight interval improvement since prior. IMPRESSION: No significant change in the bilateral pleural effusions. Vascular congestion and interstitial edema persists with interval improvement from prior.
--- NOTE | 2016-06-22 09:54 | PN- Housestaff ---
See Addendum Subjective Follow-up For: Acute on chronic congestive heart failure Chronic COPD Hypomagnesemia Complaints: no complaints Tele-Events Since Last Visit: No events overnight, normal sinus rhythm in the 60s Subjective: Patient seen and examined this morning, resting comfortably in her hospital bed. Offers no complaints states she ambulated this morning with physical therapy without extreme discomfort. Review of Systems Constitutional: Reports: see HPI. Objective Last 24 Hrs of Vital Signs/I&O Vital Signs Date Time Temp Pulse Resp B/P Pulse O2 O2 Flow FiO2 Ox Delivery Rate 06/22 0912 58 168/58 06/22 0912 58 168/58 06/22 0802 98.0 58 20 168/58 92 Nasal 3.0L Cannula 06/22 0800 92 Nasal 3.0L Cannula 06/22 0000 92 Nasal 3.0L Cannula 06/21 2200 97.4 59 20 150/60 92 Nasal 3.0L Cannula 06/21 2120 59 150/60 06/21 2119 59 150/60 06/21 1854 93 Nasal 3.0L Cannula 06/21 1849 Nasal 3.0L Cannula 06/21 1627 70 172/74 06/21 1626 70 172/74 06/21 1600 98.3 73 22 170/64 90 Nasal 2.0L Cannula 06/21 1553 90 Nasal 3.0L Cannula 06/21 1447 97.2 70 18 172/74 92 Nasal 3.0L Cannula 06/21 1438 Nasal 3.0L Cannula 06/21 1123 97.2 63 18 154/71 93 Nasal 3.0L Cannula Intake & Output 06/22 1600 06/22 0800 06/22 0000 Intake Total 100 410 Output Total 500 400 Balance -400 10 Intake, IV 10 Intake, Oral 100 400 Output, Urine 500 400 Patient 181 lb Weight Physical Exam General Appearance: Alert, Oriented X3, Cooperative HEENT: Atraumatic, PERRLA, EOMI Cardiovascular: Regular Rate, Normal S1, Normal S2 Lungs: Normal Air Movement Abdomen: Normal Bowel Sounds, Soft, No Tenderness Extremities: No Clubbing, No Cyanosis Current Medications: Current Medications Sig/Jevon Start time Last Medication Dose Route Stop Time Status Admin Albuterol Sulfate 3 ML Q4P PRN 06/21 1900 AC INH Amiodarone HCl 200 MG DAILY 06/21 1452 AC 06/22 PO 0912 Apixaban 5 MG BID 06/21 1452 AC 06/22 PO 0912 Aspirin Buffered 81 MG DAILY 06/21 1452 AC 06/22 PO 0912 Atorvastatin Calcium 20 MG 1700 06/21 1700 DC 06/21 PO 1627 Diltiazem HCl 300 MG DAILY 06/21 1453 AC 06/22 PO 0912 Furosemide 80 MG DAILY 06/22 1000 DC IV Furosemide 40 MG 7:30 AM, & 4:30 PM 06/21 2215 AC 06/22 IV 0728 Hydralazine HCl 25 MG TID 06/21 1600 AC 06/22 PO 0912 Insulin Aspart 0 TIDAC 06/21 1700 AC 06/22 SC 0758 Insulin Detemir 10 UNITS BID 06/21 1505 06/22 SC 0912 Magnesium Sulfate 2 GM ONCE ONE 06/22 0945 UNVr Dextrose/Water 250 ML IV 06/22 1344 Metoprolol Succinate 50 MG 2200 06/21 2200 AC 06/21 PO 2120 Paroxetine HCl 20 MG DAILY 06/22 1000 AC 06/22 PO 0912 Patient Medication 1 UNIT ONE NR 06/21 1500 [facility] Teaching ED 06/21 1530 Patient Medication 1 UNIT ONE NR 06/21 1500 [facility] ED 06/21 1530 Patient Medication 1 UNIT ONE NR 06/21 1500 [facility] ED 06/21 1530 Patient Medication 1 UNIT ONE NR 06/21 1500 [facility] ED 06/21 1530 Pravastatin Sodium 40 MG 1700 06/22 1700 AC PO Last 24 Hrs of Lab/Montrell Results Last 24 Hrs of Labs/Mics: Laboratory Tests 06/22/16 0645: Hemoglobin A1c Pending 06/22/16 0645: Anion Gap 15, Estimated GFR 43 L, BUN/Creatinine Ratio 31.7 H, Magnesium 1.2 L, CBC w Diff NO MAN DIFF REQ, RBC 4.01 L, MCV 71.3 L, MCH 22.4 L, RDW 18.9 H, MPV 8.2, Gran % 77.5 H, Lymphocytes % 11.9 L, Monocytes % 8.7, Eosinophils % 1.9, Basophils % 0 L, Absolute Granulocytes 3.3, Absolute Lymphocytes 0.5 L, Absolute Monocytes 0.4, Absolute Eosinophils 0.1, Absolute Basophils 0, PUBS MCHC 31.5 L 06/21/160: Troponin I < 0.01 06/21/16 1453: Troponin I < 0.01 Assessment/Plan Assessment: Problem list- 1. Acute on chronic congestive heart failure 2. Hypertension 3. Hyperlipidemia 4. Hypomagnesemia 5. Atrial fibrillation, chronic 6. COPD with 3 L supplemental oxygen use at baseline Plan- She continues to be in that negative fluid balance, continue Lasix Heart healthy diet/ diabetic diet Continue current insulin regimen Continue antihypertensives Continue statin, amiodarone Continue Eliquis Continue aspirin Magnesium this morning was 1.2, given 2 g of magnesium IV Continue supplemental oxygen and inhaler treatment/nebulizers Problem List: 1. CHF (congestive heart failure) 2. Hypertension 3. Hyperlipidemia 4. Diabetes Pain Ratin Pain Location: none Pain Goal: Remain pain free Pain Plan: per emr Tomorrow's Labs & Rationales: bep, mag
[2016-06-22 16:00] VITALS: BP 130/60
[2016-06-22 23:59] VITALS: BP 142/50
--- NOTE | 2016-06-23 07:29 | PN- Housestaff ---
JCARLOS MONTILLA 06/23/16 0729: Subjective Follow-up For: Acute on chronic diastolic CHF Complaints: pain scale (0-10) Tele-Events Since Last Visit: Sinus rhythm Sinus bradycardia And rate 59-72 No acute events noticed on monitor technician last night Subjective: Patient was seen and examined this morning. She is alert, awake and oriented to time place and person. No acute events noticed overnight. She does report shortness of breath on exertion which is chronic. She does have chronic orthopnea. She sleeps on recliner at home. She reports bilateral lower extremity edema. Lost 4 pounds since admission. Getting IV diuresis. Vitals were stable this morning. Afebrile. Heart rate 66, respiratory rate 20, blood pressure 140/50, saturating at 90% on 3 L oxygen. Of note patient uses 3 L oxygen at home for COPD. Review of Systems Constitutional: Denies: see HPI. Objective Last 24 Hrs of Vital Signs/I&O Vital Signs Date Time Temp Pulse Resp B/P Pulse O2 O2 Flow FiO2 Ox Delivery Rate 06/23 0804 97.8 68 20 150/58 93 Nasal 3.0L Cannula 06/23 0800 Nasal 3.0L Cannula 06/23 0000 Nasal 3.0L Cannula 06/22 2359 99.5 66 20 142/50 90 Nasal 2.0L Cannula 06/224 70 06/22 2114 70 06/22 2056 91 Nasal 3.0L Cannula 06/22 1652 64 130/60 06/22 1609 Nasal 3.0L Cannula 06/22 1600 97.6 64 20 130/60 92 Nasal 3.0L Cannula Intake & Output 06/23 1600 06/23 0800 06/23 0000 Intake Total 130 874 Output Total 300 300 Balance -170 574 Intake, IV 10 74 Intake, Oral 120 800 Output, Urine 300 300 Patient 82.724 kg Weight Physical Exam General Appearance: Alert, Oriented X3, Cooperative, No Acute Distress Skin: No Rashes, No Breakdown HEENT: Atraumatic, Mucous Membr. moist/pink Neck: Supple, No JVD Lymphatic: Cervical nl Cardiovascular: Normal S1, Normal S2 Lungs: Normal Air Movement Abdomen: Normal Bowel Sounds, Soft, No Tenderness Extremities: No Clubbing, No Cyanosis, +2 b/l edema Vascular: Normal Pulses, Pulses Symmetrical Current Medications: Current Medications Sig/Jevon Start time Last Medication Dose Route Stop Time Status Admin Albuterol Sulfate 3 ML Q4P PRN 06/21 1900 AC INH Amiodarone HCl 200 MG DAILY 06/21 1452 AC 06/22 PO 09 Apixaban 5 MG BID 06/21 1452 AC 06/22 PO 2114 Aspirin Buffered 81 MG DAILY 06/21 1452 AC 06/22 PO 0912 Diltiazem HCl 300 MG DAILY 06/21 1453 AC 06/22 PO 0912 Furosemide 40 MG 7:30 AM, & 4:30 PM 06/21 2215 AC 06/23 IV 0752 Hydralazine HCl 25 MG TID 06/21 1600 AC 06/22 PO 2114 Insulin Aspart 0 TIDAC 06/21 1700 AC 06/23 SC 0752 Insulin Detemir 10 UNITS BID 06/21 1505 AC 06/22 SC 2113 Magnesium Sulfate 1 GM .STK-MED ONE 06/22 1111 DC IV 06/22 1112 Magnesium Sulfate 1 GM Q2H 06/22 0945 DC 06/22 Dextrose/Water 100 ML IV 06/22 1344 1403 Metoprolol Succinate 50 MG 2200 06/21 2200 AC 06/22 PO 2114 Paroxetine HCl 20 MG DAILY 06/22 1000 AC 06/22 PO 0912 Pravastatin Sodium 40 MG 1700 06/22 1700 AC 06/22 PO 1652 Last 24 Hrs of Lab/Montrell Results Last 24 Hrs of Labs/Mics: Laboratory Tests 06/23/16 0635: Anion Gap 8, Estimated GFR 40 L, BUN/Creatinine Ratio 30.0 H, Magnesium 1.6 Assessment/Plan Assessment: This is a 80-year-old female with past medical history significant for atrial fibrillation on eliqus, Cardizem, amiodarone, chronic congestive heart failure with preserved systolic function and ejection fraction, hypertension, hyperlipidemia, coronary artery disease status post stent placement, COPD on 3 L oxygen at home, depression, anxiety, type 2 diabetes mellitus, anxiety, insomnia , obesity, former smoker, moderate to severe pulmonary hypertension, moderate mitral regurgitation, presented to the [facility] emergency department with chief complaint of worsening lower extremity edema and 20LB weight gain in 2 weeks. Of note goes to [facility]- CHF clinic twice weekly to get IV Lasix 40 mg or 60 mg based on the swelling. She was admitted at [facility] in May 2016 for acute on chronic CHF exacerbation. Last echocardiogram done in November 2015 showed ejection fraction 60-65%. Vitals on admission afebrile, heart rate 58, respiratory rate 16, blood pressure 159/68, saturating at 93% on 3 L oxygen. Pertinent labs on admission wbc-4.3, H&H 9.5 and 30, potassium 4.2, creatinine 1.3 on admission. ProBNP 9740. She received 1 dose of IV Lasix 80 mg in the emergency room. Troponin and EKG were negative on admission Chest x-ray showed bibasilar densities and atelectasis. Mild interstitial edema and bilateral pleural effusions. Problem list 1. Acute on chronic CHF with preserved ejection fraction 2. Atrial fibrillation 3. Hypertension 4. Hyperlipidemia 5. Coronary artery disease 6. COPD 7. Depression 8. Anxiety 9. Diabetes mellitus Acute on chronic CHF with preserved ejection fraction Patient presented with worsening bilateral lower extremity edema and weight gain of 20 LB is in 2 weeks. Off note she has chronic shortness of breath on exertion. Reports chronic orthopnea. She uses recliner to sleep. She reports difficulty ambulating from weight gain. Troponin and EKG negative on admission. Chest x-ray showed interstitial edema and bilateral pleural effusion * Admitted to telemetry floor for continuous observation * On telemetry monitoring * Monitor vitals every shift * Maintain oxygen saturation above 90% * Continue IV diuresis with Lasix 40 mg IV twice a day for now * Off-note patient takes 40 mg orally twice a day at home * Strict ins and outs * Daily weights * Low-sodium diet Planning to discharge her on Lasix 60 mg 2 times a day orally Advised her to follow-up at CHF clinic 3 times a week to get IV diuretics Atrial fibrillation Continue home dose of Cardizem 300 mg daily Continue home dose of amiodarone 200 mg daily Continue eliqus 5 mg twice a day Hypertension Continue home dose of hydralazine 25 mg 3 times a day Continue metoprolol 50 mg Losartan on hold because of increased creatinine on admission Continued at the time of discharge Hyperlipidemia On pravastatin 40 mg Coronary artery disease Continue baby aspirin 81 mg daily COPD On home oxygen 3 L for COPD Continue home inhalers Total respiratory care Depression Continue home dose of paroxetine Diabetes mellitus Accu-Cheks before meals NovoLog sliding scale Full code DVT prophylaxis -eliqus Heart healthy diet she is scheduled for right heart cath this coming Thursday. Problem List: 1. CHF (congestive heart failure) Pain Ratin Pain Location: none Pain Goal: Remain pain free Pain Plan: tylinol Tomorrow's Labs & Rationales: none CHESTER PUCKETT MD 06/23/16 1047: Attending MD Review Statement Attending Statement Attending MD Statement: examined this patient, discuss w/resident/PA/GLASS BLOWER HELPER, agreed w/resident/PA/GLASS BLOWER HELPER, reviewed EMR data (avail), discussed with nursing, discussed with case mgmt Attending Assessment/Plan: Patient walked around with physical therapy and needs home PT. She feels like her breathing and her legs are back to their baseline. She is a 80-year-old with a history of A. fib on Eliquis, diabetes, chronic diastolic and right-sided heart failure, chronic respiratory failure with COPD on 3 L of oxygen. She follows at the CHF clinic and was sent in for IV Lasix. Because she failed the IV Lasix at the CHF clinic. Over the weekend they have been treating her with Lasix 40 IV twice a day. Her usual outpatient dose is 40 by mouth twice a day. Clarify this with Dr. Longoria today and clarify her outpatient discharge dose. We'll set her up with visiting nurse and CHF clinic.
[2016-06-23 08:04] VITALS: BP 150/58
--- NOTE | 2016-06-23 09:17 | Cons- Pulmonary ---
General Information and HPI Consulting Request Date of Consult: 06/23/16 Requested By: Pt, Dr. Longoria Reason for Consult: dyspnea, chf Source of Information: patient Exam Limitations: no limitations History of Present Illness: 80 year old woman. Consultation for dyspnea. Known to me from office and previous admission. Pt came after wellness clinic visit. Sees Dr. Longoria for worsened leg edema despite CHF clinic visits and dyspnea that has progressively deteriorated. Dry cough, no fevers, no chills, no n/v/d/c. No [place]. Her history includes pulmonary htn/cor pulmonale, hypertension, hyperlipidemia, anxiety, diabetes, previous stent. On Eliquis for a.fib. Follows with Dr. Longoria. CXR with bilateral effusions, congestion. 93% on 3LNC. PFTs January 2016 - restrictive and obstructive ventilatory defect with resting hypoxemia. She has signs consistent with moderate emphysema and her oxygen saturation was as low as 84% on room air improved with oxygen. Allergies/Medications Allergies: Coded Allergies: meperidine (From DEMEROL) (GI UPSET 06/20/16) oxycodone (From PERCOCET) (GI UPSET 06/20/16) Home Med List: Amiodarone HCl 200 MG TABLET 1 TAB PO DAILY AFIB Apixaban (Eliquis) 5 MG TABLET 1 TAB PO BID BLOOD THINNER (Reported) Aspirin (Ecotrin*) 81 MG TABLET.DR 1 TAB PO DAILY HEART HEALTH (Reported) Diltiazem HCl (Cardizem Cd) 300 MG CAP.ER.24H 1 TAB PO DAILY ATRIAL FIBRILLATION Fluticasone Propionate (Flovent Hfa) 12 GM AER.W.ADAP 2 PUF INH BID SHORTNESS OF BREATH Furosemide (Lasix) 40 MG TABLET 1 TAB PO BID CHF Hydralazine HCl 25 MG TABLET 1 MG PO TID BLOOD PRESSURE Insulin Detemir (Levemir) 100 UNIT/ML VIAL 9 UNITS SC BID diabetes . Losartan Potassium (Cozaar) 25 MG TABLET 1 TAB PO DAILY bp Magnesium Oxide 400 MG TABLET 400 MG PO TID HYPOMAGNESEMIA Metformin HCl 850 MG TABLET 1 TAB PO BID DM (Reported) Metoprolol Succinate 50 MG TAB.ER.24H 1 TAB PO BID HEART/BP (Reported) Paroxetine HCl 20 MG TABLET 1 TAB PO DAILY DEPRESSION (Reported) Simvastatin (Simvastatin*) 80 MG TABLET 0.5 TAB PO DAILY CHOLESTEROL ( Reported) Sitagliptin Phosphate (Januvia) 100 MG TABLET 1 TAB PO DAILY DIABETES ( Reported) Tiotropium [place] (Spiriva) 18 MCG CAP.W.DEV 1 PUF INH DAILY SHORTNESS OF BREATH Current Medications: Current Medications Sig/Jevon Start time Last Medication Dose Route Stop Time Status Admin Albuterol Sulfate 3 ML Q4P PRN 06/21 1900 AC INH Amiodarone HCl 200 MG DAILY 06/21 1452 AC 06/22 PO 09 Apixaban 5 MG BID 06/21 1452 AC 06/22 PO 211 Aspirin Buffered 81 MG DAILY 06/21 1452 AC 06/22 PO 0912 Diltiazem HCl 300 MG DAILY 06/21 1453 AC 06/22 PO 09 Furosemide 40 MG 7:30 AM, & 4:30 PM 06/21 2215 AC 06/23 IV 0752 Hydralazine HCl 25 MG TID 06/21 1600 AC 06/22 PO 211 Insulin Aspart 0 TIDAC 06/21 1700 AC 06/23 SC 0752 Insulin Detemir 10 UNITS BID 06/21 1505 AC 06/22 SC 2113 Magnesium Sulfate 1 GM .STK-MED ONE 06/22 1111 DC IV 06/22 1112 Magnesium Sulfate 1 GM Q2H 06/22 0945 DC 06/22 Dextrose/Water 100 ML IV 06/22 1344 1403 Metoprolol Succinate 50 MG 06/21 2200 AC 06/22 PO 2114 Paroxetine HCl 20 MG DAILY 06/22 1000 AC 06/22 PO 0912 Pravastatin Sodium 40 MG 1700 06/22 1700 AC 06/22 PO 1652 Review of Systems Comments 18 pt ros reviewed pertinent positives and negatives are in chart Past History Travel History Traveled to [place] past 21 day No Medical History Blood Transfusion Hx: No Neurological: NONE EENT: NONE Cardiovascular: AFIB, CHF, hypertension, hyperlipidemia, STENTS (1) Respiratory: COPD, pneumonia Gastrointestinal: NONE Hepatic: NONE Renal: NONE Musculoskeletal: NONE Psychiatric: anxiety, depression Endocrine: diabetes Blood Disorders: LOW MAGNESIUM Cancer(s): NONE 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 self Services at Home: Oxygen Smoking Status: Former Smoker ETOH Use: occasional use Illicit Drug Use: denies illicit drug use Living Will? yes Functional Ability ADLs Independent: dressing, eating, toileting, bathing. Ambulation: independent IADLs Independent: shopping, housework, finances, food prep, telephone, transportation , medication admin. Exam & Diagnostic Data Last 24 Hrs of Vital Signs/I&O Vital Signs Date Time Temp Pulse Resp B/P Pulse O2 O2 Flow FiO2 Ox Delivery Rate 06/23 0804 97.8 68 20 150/58 93 Nasal 3.0L Cannula 06/23 0800 Nasal 3.0L Cannula 06/23 0000 Nasal 3.0L Cannula 06/22 2359 99.5 66 20 142/50 90 Nasal 2.0L Cannula 06/22 2114 70 06/22 2114 70 06/227 91 Nasal 3.0L Cannula 06/22 1652 64 130/60 06/22 1609 Nasal 3.0L Cannula 06/22 1600 97.6 64 20 130/60 92 Nasal 3.0L Cannula Intake & Output 06/23 1600 06/23 0800 06/23 0000 Intake Total 130 874 Output Total 300 300 Balance -170 574 Intake, IV 10 74 Intake, Oral 120 800 Output, Urine 300 300 Patient 182 lb Weight Physical Exam Other Physical Findings: gen awake heent ncat cvs s1, s2, murmur lungs bibasilar crackles, diminished at bases abd soft bs+ ext 2+ edema Last 48 Hrs of Labs/Montrell: Laboratory Tests 06/23/16 0635: Anion Gap 8, Estimated GFR 40 L, BUN/Creatinine Ratio 30.0 H, Magnesium 1.6 06/22/16 0645: Hemoglobin A1c Pending 06/22/16 0645: Anion Gap 15, Estimated GFR 43 L, BUN/Creatinine Ratio 31.7 H, Magnesium 1.2 L, CBC w Diff NO MAN DIFF REQ, RBC 4.01 L, MCV 71.3 L, MCH 22.4 L, RDW 18.9 H, MPV 8.2, Gran % 77.5 H, Lymphocytes % 11.9 L, Monocytes % 8.7, Eosinophils % 1.9, Basophils % 0 L, Absolute Granulocytes 3.3, Absolute Lymphocytes 0.5 L, Absolute Monocytes 0.4, Absolute Eosinophils 0.1, Absolute Basophils 0, PUBS MCHC 31.5 L 06/21/16 2120: Troponin I < 0.01 06/21/16 1453: Troponin I < 0.01 Assessment/Plan Impression/Plan: Impression 80F with COPD, pulmonary htn, bilateral pleural effusions, chronic hypoxemic respiratory failure, acute exacerbation of cor pulmonale secondary to pulmonary htn/right heart failure. Plan -diuresis, ins/outs -she may benefit from evaluation from the [place] [facility] -o2 sat goal >88% -TRC/Nebs -spiriva and breo at home -on eliquis -dvt prophylaxis at all times Thank you for this consultation, will follow with you. Consult Acknowledgment - Thank you for your consult request.
[2016-06-23 09:46] VITALS: BP 150/58
--- NOTE | 2016-06-23 11:43 | PN- Cardiology ---
Subjective Subjective: The patient reports that she is feeling better. Shortness of breath has improved significantly since admission. No chest pain. No palpitations. No diaphoresis. Her COPD is stable. She remains on Eliquis for paroxysmal atrial fibrillation, and she is currently in sinus rhythm. She has been following up place a week with the CHF clinic for her HFpEF, however she developed volume overload secondary to acute on chronic exacerbation. Objective Vital Signs and I&Os Vital Signs Date Time Temp Pulse Resp B/P Pulse O2 O2 Flow FiO2 Ox Delivery Rate 06/23 1111 93 Nasal 3.0L Cannula 06/23 0946 68 150/58 06/23 0946 68 150/58 06/23 0804 97.8 68 20 150/58 93 Nasal 3.0L Cannula 06/23 0800 Nasal 3.0L Cannula 06/23 0000 Nasal 3.0L Cannula 06/22 2359 99.5 66 20 142/50 90 Nasal 2.0L Cannula 06/22 2114 70 06/22 2114 70 06/22 2057 91 Nasal 3.0L Cannula 06/22 1652 64 130/60 06/22 1609 Nasal 3.0L Cannula 06/22 1600 97.6 64 20 130/60 92 Nasal 3.0L Cannula Intake & Output 06/23 1600 06/23 0800 06/23 0000 06/22 1600 06/22 0800 06/22 0000 Intake Total 130 874 894 100 410 Output Total 300 300 950 500 400 Balance -170 574 -56 -400 10 Intake, IV 10 74 174 10 Intake, Oral 120 800 720 100 400 Number 1 Bowel Movements Output, Urine 300 300 950 500 400 Patient 182 lb 181 lb Weight Physical Exam: Gen: The patient is in no acute distress HEENT: Normal nose, ears, and oropharynx. Pupils equal bilaterally. Conjunctiva normal. Neck: Supple with no JVD, no masses, and no thyromegaly Lungs: Scattered rales bilaterally with normal respiratory effort Heart: RRR, S1, S2, 1/6 systolic murmur. 2+ peripheral edema, 2+ pulses in the lower extremities bilaterally Abdomen: Soft, nontender, no masses. No hepatomegaly. No splenomegaly Extremities: No clubbing or cyanosis. Normal muscle strength in the upper and lower extremities Skin: Normal skin turgor with no skin ulcers or lesions noted. Neuro: Cranial nerves intact. Sensation intact Psych: Alert and oriented 3 with appropriate affect Current Medications: Current Medications Sig/Jevon Start time Last Medication Dose Route Stop Time Status Admin Albuterol Sulfate 3 ML Q4P PRN 06/21 1900 AC INH Amiodarone HCl 200 MG DAILY 06/21 1452 AC 06/23 PO 0946 Apixaban 5 MG BID 06/21 1452 AC 06/23 PO 0946 Aspirin Buffered 81 MG DAILY 06/21 1452 AC 06/23 PO 0946 Diltiazem HCl 300 MG DAILY 06/21 1453 AC 06/23 PO 0946 Furosemide 40 MG 7:30 AM, & 4:30 PM 06/21 2215 AC 06/23 IV 0752 Hydralazine HCl 25 MG TID 06/21 1600 AC 06/23 PO 0946 Insulin Aspart 0 TIDAC 06/21 1700 AC 06/23 SC 0752 Insulin Detemir 10 UNITS BID 06/21 1505 AC 06/23 SC 0946 Magnesium Sulfate 1 GM Q2H 06/22 0945 DC 06/22 Dextrose/Water 100 ML IV 06/22 1344 1403 Metoprolol Succinate 50 MG 2200 06/21 2200 AC 06/22 PO 2114 Paroxetine HCl 20 MG DAILY 06/22 1000 AC 06/23 PO 0946 Pravastatin Sodium 40 MG 1700 06/22 1700 AC 06/22 PO 1652 Results Last 48 Hrs of Labs/Mics: Laboratory Tests 06/23/16 0635: Anion Gap 8, Estimated GFR 40 L, BUN/Creatinine Ratio 30.0 H, Magnesium 1.6 06/22/16 0645: Hemoglobin A1c Pending 06/22/16 0645: Anion Gap 15, Estimated GFR 43 L, BUN/Creatinine Ratio 31.7 H, Magnesium 1.2 L, CBC w Diff NO MAN DIFF REQ, RBC 4.01 L, MCV 71.3 L, MCH 22.4 L, RDW 18.9 H, MPV 8.2, Gran % 77.5 H, Lymphocytes % 11.9 L, Monocytes % 8.7, Eosinophils % 1.9, Basophils % 0 L, Absolute Granulocytes 3.3, Absolute Lymphocytes 0.5 L, Absolute Monocytes 0.4, Absolute Eosinophils 0.1, Absolute Basophils 0, PUBS MCHC 31.5 L 06/21/16 2120: Troponin I < 0.01 06/21/16 1453: Troponin I < 0.01 Recent Imaging Studies: Chest x-ray: No significant change in the bilateral pleural effusions. Vascular congestion and interstitial edema persists with interval improvement from prior. EKG tracing is independently reviewed, and reveals normal sinus rhythm at 59 with possible anterior infarct age undetermined, and nonspecific ST-T abnormality Assessment/Plan Assessment/Plan Assessment: 1. Oxygen dependent COPD 2. Paroxysmal atrial ablation, currently in sinus 3. CAD, stable 4. Mild aortic stenosis 5. Acute on chronic HFpEF, improved with diuretic therapy Plan: * Change Lasix to 6omg po twice a day * Continue other cardiac medications. * The patient is planned for discharge today. * Heart failure clinic visits will be increased to 3 times per week until stable. * Follow up with Dr. Longoria in one week. Continue telemetry? Yes
[2016-06-23] MEDS ORDERED: LASIX20 M1 PO (11:48)
== END 2016-06-23 16:00 | disposition home health service (06) ==
LOC: ENRESERV → ENRESERVDT → ENRESERVTM → ERH 15:44 → 1NO 20:20 → ENPENDDIS 20:20 → ERHI 20:20 → EDBEDREQ 06-21 13:40 → EDBEDREQSVC 06-21 13:40 → EDBEDREQTM 06-21 13:40 → EDBEDREQDT 06-21 13:40 → CANBEDREQ 06-21 13:41 → 1NO 06-21 15:30
PROVIDERS: Internal Medicine; ADMIT Emergency Medicine
DX: I50.33 Acute on chronic diastolic (congestive) heart failure (principal); I48.91 Unspecified atrial fibrillation; Z79.01 Long term (current) use of anticoagulants; I25.10 Atherosclerotic heart disease of native coronary artery without angina pectoris; I10 Essential (primary) hypertension; E78.5 Hyperlipidemia, unspecified; J44.9 Chronic obstructive pulmonary disease, unspecified; F32.9 Major depressive disorder, single episode, unspecified; E11.9 Type 2 diabetes mellitus without complications; E66.9 Obesity, unspecified; I27.2 Other secondary pulmonary hypertension; F41.9 Anxiety disorder, unspecified; E83.42 Hypomagnesemia; J96.10 Chronic respiratory failure, unspecified whether with hypoxia or hypercapnia; I35.0 Nonrheumatic aortic (valve) stenosis
CPT/HCPCS: 1255; 1328; 1425; 1530; 1748; 2000; 36415; 82436; 93005; 93010; 96374; 96375; 96376; 97110-GP; 97116-GP; G0378; J1940; J7060